=== PATIENT | male | born 1965 | race Caucasian/White ===

== ENCOUNTER → 2019-07-26 11:10 | Outpatient (BNVA) | payer OTHER, SELFPAY | PROVIDERS: Family Provider Internal Medicine; PCP Internal Medicine; Visit Provider Specialist | DX: Z48.89 Encounter for other specified surgical aftercare (principal); Z96.653 Presence of artificial knee joint, bilateral | CPT/HCPCS: 73565 ==

== ENCOUNTER 2019-08-24 06:00 | Outpatient (RCR) | payer OTHER, SELFPAY | END 2019-09-18 23:59 | disposition home or self-care (01) | LOC: TPT 06:00 | PROVIDERS: Family Provider Internal Medicine; PCP Internal Medicine; Referring Provider Specialist; Visit Provider Specialist | DX: Z47.1 Aftercare following joint replacement surgery (principal); Z96.652 Presence of left artificial knee joint | CPT/HCPCS: 97110; 97140; 97161 ==

== ENCOUNTER 2019-09-19 06:00 | Outpatient (RCR) | payer OTHER, SELFPAY | END 2019-10-19 23:59 | disposition home or self-care (01) | LOC: TPT 06:00 | PROVIDERS: Family Provider Internal Medicine; PCP Internal Medicine; Referring Provider Specialist; Visit Provider Specialist | DX: Z47.1 Aftercare following joint replacement surgery (principal); Z96.653 Presence of artificial knee joint, bilateral | CPT/HCPCS: 97110; 97140 ==

== ENCOUNTER → 2019-09-23 10:06 | Outpatient (BNVA) | payer OTHER, SELFPAY | PROVIDERS: Family Provider Internal Medicine; PCP Internal Medicine; Visit Provider Specialist | DX: Z48.89 Encounter for other specified surgical aftercare (principal); Z96.653 Presence of artificial knee joint, bilateral | CPT/HCPCS: 73560; 73565 ==

== ENCOUNTER → 2020-10-27 10:42 | Outpatient (BNVA) | payer OTHER, SELFPAY | PROVIDERS: Family Provider Internal Medicine; PCP Internal Medicine; Visit Provider Nurse Practitioner | DX: K92.1 Melena (principal) | CPT/HCPCS: 85025 ==

== ENCOUNTER → 2021-03-28 10:59 | Outpatient (BNVA) | payer OTHER, SELFPAY | PROVIDERS: Family Provider Internal Medicine; PCP Internal Medicine; Visit Provider Specialist | DX: Z48.89 Encounter for other specified surgical aftercare (principal); M25.569 Pain in unspecified knee; Z96.653 Presence of artificial knee joint, bilateral; M25.561 Pain in right knee; G89.29 Other chronic pain | CPT/HCPCS: 73560; 73565 ==

== ENCOUNTER 2021-10-04 11:28 | Emergency (ER) | payer OTHER, SELFPAY ==
[2021-10-04 11:48] VITALS: BP 131/76; PULSE 59; RESP 16; TEMP 36.9; O2SAT 97; BMI 34.7
--- NOTE | 2021-10-04 12:07 | PC.NURSE ---
Dr. Castro reviewed the EKG that was taken in triage at 1156
--- NOTE | 2021-10-04 14:30 | ECG_ITS ---
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 Measurements Intervals [place] Rate: 53 P: 68 [place]: 156 QRS: 54 QRSD: 88 T: 18 QT: 444 QTc: 417 Interpretive Statements SINUS BRADYCARDIA Compared to ECG 01/27/2019 08:54:54 Sinus rhythm no longer present Electronically Signed On 10-04-2021 21:51:24 CDT by Aaron Travis M.D. [id number]
--- NOTE | 2021-10-04 15:02 | PC.NURSE ---
denies any pain at this time
[2021-10-04 15:03] VITALS: BP 154/84; PULSE 76; RESP 20; O2SAT 98
[2021-10-04 15:22] LABS: Basophils % 0.4 %; Eosinophils # 0.1 10^3/uL (0.0-0.8); Eosinophils % 1.6 %; Hematocrit 47.9 % (42.0-52.0); Hemoglobin 15.8 g/dL (11.7-16.6); Lymphocytes # 2.2 10^3/uL (0.8-4.8); Lymphocytes % 27.6 %; Mean Corpuscular Hemoglobin 31.2 pg (28.0-34.0); Mean Corpuscular Volume 94.7 fl (80-94); Mean Platelet Volume 9.1 fL (7.4-10.4); Monocytes # 0.7 10^3/uL (0.2-0.9); Monocytes % 8.8 %; Neutrophils # 4.94 10^3/uL (1.8-7.7); Neutrophils % 61.2 %; Nucleated Red Blood Cells % 0 %; Platelet Count 234 10^3/cmm (130-400); Red Blood Count 5.06 10^6/uL (4.1-5.3); Red Cell Distribution Width 12.1 % (12.1-15.1); White Blood Count 8.1 10^3/uL (4.0-10.0)
[2021-10-04 15:51] LABS: Anion Gap 14.8 (5-19); Blood Urea Nitrogen 13 mg/dL (6-20); Calcium 9.8 mg/dL (8.5-10.5); Carbon Dioxide 26 mmol/L (22-29); Chloride 102 mmol/L (98-107); Glomerular Filtration Rate 86.7 mL/min (90-130); Glucose 91 mg/dL (65-115); Osmolality Calculated 288 mOsm/kg (285-295); Potassium 3.8 mmol/L (3.5-5.1); Sodium 139 mmol/L (136-145)
[2021-10-04 16:05] VITALS: BP 128/68; PULSE 48; RESP 18; O2SAT 97
--- NOTE | 2021-10-04 16:08 | ED_ITS ---
HPI - General Adult General: Chief complaint: Dizziness Stated complaint: Chestpain, heart pulse low Time Seen by Provider: 10/04/21 14:54 History of Present Illness: Patient is a 56-year-old male with a history of hypertension who presents emergency room for evaluation of low heart rate. Patient was seen earlier today at the [facility] and noted to have a heart rate of 45-46 and was told to go to the emergency room for further evaluation. Patient has had intermittent lightheadedness in the last 3 days. Patient says that he has been taking his metoprolol for his elevated blood pressure. Otherwise patient denies any chest pain, shortness of breath, abdominal complaints of nausea/vomiting, focal neurological deficits, diarrhea, melena/hematochezia. Patient denies any cough, runny nose, sore throat, fever or chills. Onset: 3 days ago of light-headedness Duration:intermittent Location:home Severity:moderate Associated symptoms: Reports palpitations; Deny chest pain, dyspnea, nausea, rash or vomiting Review of Systems Const: Denies: fever(s) or chills Eyes: Denies: change in vision ENMT: Denies: mouth pain Card: Reports: palpitations; Denies: chest pain Resp: Denies: dyspnea or non-productive cough GI: Denies: abdominal pain, nausea, vomiting or diarrhea : Denies: dysuria Musc: Denies: extremity pain Skin/Breast: Denies: rash or new lesions Neuro: Reports: other (+light-headedness); Denies: weakness in extremities Psych: Reports: other (Normal mood) Mrac/Lymph: Denies: easy bruising PFS ED PFSH: Medical History Hypertension Surgical History Hx of total knee arthroplasty right-03/30/2018; Left- 02/02/19 Family History Father Family history of premature coronary artery disease Hypertension Mother Hypertension Denies family history of Diabetes CAD (coronary artery disease) Clotting disorder Dementia Hyperlipidemia Psychiatric illness Chronic kidney disease (CKD) Suicide Anesthesia complication Bleeding disorder Lung disease Cancer Stroke Social History Smoking and tobacco status: former smoker Quit status (tobacco): has quit using tobacco Year quit tobacco: 10 years ago Second hand smoke exposure: No Smoking risk assessment/counseling performed?: No Alcohol intake: never Desire information about alcohol rehabilitation?: No Counseling given: No Physical Exam Const: COMMON NORMALS: alert HENMT: COMMON NORMALS: atraumatic HEAD & SCALP: atraumatic MOUTH: moist mucous membranes not abnormal Eye: COMMON NORMALS: EOMs intact bilaterally and conjunctivae normal CONJUNCTIVA: Yes conjunctivae normal Neck/C-Spine: COMMON NORMALS: full ROM and supple Resp: COMMON NORMALS: normal respiratory effort and clear to auscultation bilaterally AUSCULTATION: clear to auscultation bilaterally Cardio: COMMON NORMALS: regular rate RATE: regular rate GI: COMMON NORMALS: Soft to palpation and non-tender PALPATION: Yes Soft to palpation Extremity: COMMON NORMALS: full ROM Neuro: SENSORIUM/ORIENTATION: Yes alert MOTOR EXAM: No Abnormal motor strength present and Other motor observations present (no focal motor deficits) OTHER: 5 out of 5 strength in all extremities, [id number] intact bilaterally, cranial nerves II to XII grossly intact, patient is able to ambulate with a steady gait, negative Romberg. Psych: COMMON NORMALS: speech normal SPEECH: Yes normal speech MOOD & AFFECT: Yes euthymic mood Course Vital Signs: Vital signs: Vital Signs Temperature 98.4 F 10/04/21 11:48 Pulse Rate 48 L 10/04/21 16:05 Respiratory Rate 18 10/04/21 16:05 Blood Pressure 128/68 10/04/21 16:05 Pulse Oximetry 97 10/04/21 16:05 MDM - General Adult Medical Decision Making 56-year-old male presenting to the emergency room for evaluation of low heart rate and intermittent episode of lightheadedness. Patient denies any associate chest pain, palpitation or shortness of breath. On exam, patient is neurologically intact. Rest of exam within normal limit. Troponin x2 within normal limits. EKG not showing signs of heart blocks, or any other signs of bradycardia. Patient was placed on the monitoring and evaluation advisor continues to have heart rate in the 50s. Troponin x2 within normal limit. At the present time, it is clear what is the source of this bradycardia. Lab Data : 10/04/21 15:10 10/04/21 15:10 Laboratory Results WBC 8.1 10^3/uL (4.0-10.0) 10/04/21 15:10 RBC 5.06 10^6/uL (4.1-5.3) 10/04/21 15:10 Hgb 15.8 g/dL (11.7-16.6) 10/04/21 15:10 Hct 47.9 % (42.0-52.0) 10/04/21 15:10 MCV 94.7 fl (80-94) H 10/04/21 15:10 MCH 31.2 pg (28.0-34.0) 10/04/21 15:10 MCHC 33.0 g/dL (30.0-36.0) 10/04/21 15:10 RDW 12.1 % (12.1-15.1) 10/04/21 15:10 Plt Count 234 10^3/cmm (130-400) 10/04/21 15:10 MPV 9.1 fL (7.4-10.4) 10/04/21 15:10 Neut % (Auto) 61.2 % 10/04/21 15:10 Lymph % (Auto) 27.6 % 10/04/21 15:10 [place] % (Auto) 8.8 % 10/04/21 15:10 Eos % (Auto) 1.6 % 10/04/21 15:10 Baso % (Auto) 0.4 % 10/04/21 15:10 Neut # (Auto) 4.94 10^3/uL (1.8-7.7) 10/04/21 15:10 Lymph # (Auto) 2.2 10^3/uL (0.8-4.8) 10/04/21 15:10 [place] # (Auto) 0.7 10^3/uL (0.2-0.9) 10/04/21 15:10 Eos # (Auto) 0.1 10^3/uL (0.0-0.8) 10/04/21 15:10 Baso # (Auto) 0.0 10^3/uL (0.0-0.1) 10/04/21 15:10 Nucleated RBC % (auto) 0 % 10/04/21 15:10 Nucleated RBCs # 0.0 /100WBC 10/04/21 15:10 Sodium 139 mmol/L (136-145) 10/04/21 15:10 Potassium 3.8 mmol/L (3.5-5.1) 10/04/21 15:10 Chloride 102 mmol/L (98-107) 10/04/21 15:10 Carbon Dioxide 26 mmol/L (22-29) 10/04/21 15:10 Anion Gap 14.8 (5-19) 10/04/21 15:10 BUN 13 mg/dL (6-20) 10/04/21 15:10 Creatinine 0.9 mg/dL (0.7-1.2) 10/04/21 15:10 GFR Calculation 86.7 mL/min (90-130) L 10/04/21 15:10 Glucose 91 mg/dL (65-115) 10/04/21 15:10 Calculated Osmolality 288 mOsm/kg (285-295) 10/04/21 15:10 Calcium 9.8 mg/dL (8.5-10.5) 10/04/21 15:10 Discharge Plan Discharge Condition: Stable Prescriptions: No Action aspirin [Adult Aspirin Regimen] 81 mg tablet,delayed release (DR/EC) 81 mg PO ONCE 0RF rosuvastatin [Crestor] 20 mg tablet 20 mg PO ONCE 0RF lisinopril-hydrochlorothiazide 10-12.5 mg tablet 2 tab PO ONCE 0RF hydrocortisone acetate 25 mg suppository 25 mg [place] DAILY 7 Days Qty: 12 0RF Referrals: Jenny Skelton MD [Primary Care Provider] - Travis Kerns [Family Provider] - Coding Level of Care Code ED Evaluation Manager for Caritog Otilia
[2021-10-04] MEDS: sodium chloride 0.9% 1,000 ML 999 ML IV (17:02)
[2021-10-04 17:06] VITALS: BP 130/73; PULSE 52; RESP 20; O2SAT 99
[2021-10-04 17:39] VITALS: BP 126/69; PULSE 51; RESP 14; O2SAT 99
[2021-10-04 19:05] LABS: Troponin(5th) Baseline 12 ng/L (0-15)
[2021-10-04 19:09] LABS: Troponin 5 2HR 9.38 ng/L (0-15)
[2021-10-04 19:15] LABS: Troponin 5 2HR Delta -3.62 ABS# (0-10)
[2021-10-04 19:38] VITALS: BP 129/82; PULSE 58; RESP 20; O2SAT 98
== END 2021-10-04 19:40 | disposition home or self-care (01) ==
PROVIDERS: Nurse Practitioner Family; Emergency Provider Emergency Medicine; Family Provider Internal Medicine; PCP Family Medicine
DX: R00.1 Bradycardia, unspecified (principal); Z79.82 Long term (current) use of aspirin; I10 Essential (primary) hypertension; Z87.891 Personal history of nicotine dependence
CPT/HCPCS: 80048; 84484; 85025; 93005; 96360; 99284; J7030

== ENCOUNTER → 2021-12-18 12:31 | Outpatient (BNVA) | payer OTHER, SELFPAY | PROVIDERS: Family Provider Internal Medicine; PCP Family Medicine; Visit Provider Internal Medicine | DX: R00.1 Bradycardia, unspecified (principal); I10 Essential (primary) hypertension; R00.0 Tachycardia, unspecified | CPT/HCPCS: 93229; 99204 ==

== ENCOUNTER 2022-01-25 10:20 | Outpatient (CLI) | payer OTHER, SELFPAY ==
--- NOTE | 2022-01-25 11:00 | USCV_ITS ---
Chino Tate Age: 56 Gender: M : 1965 Exam Date: 01/25/2022 10:39 Ordering Phys: Yogesh Jensen M.D ([email or web address]) Technologist: Exam Location: [facility] Indication: sob BP: 138 / 76 HR: 65 Rhythm: Sinus Technical Quality: Adequate MEASUREMENTS (Male / Female) Normal Values 2D ECHO LV Diastolic Diameter PLAX 3.8 cm 4.2 - 5.9 / 3.9 - 5.3 cm LV Systolic Diameter PLAX 2.4 cm IVS Diastolic Thickness 1.2 cm 0.6 - 1.0 / 0.6 - 0.9 cm IVS Systolic Thickness 1.7 cm LVPW Diastolic Thickness 1.1 cm 0.6 - 1.0 / 0.6 - 0.9 cm LVPW Systolic Thickness 1.7 cm LVOT Diameter 2.1 cm LV Ejection Fraction 2D Teich 68.2 % LV Ejection Fraction MOD 2C 80.0 % LV Ejection Fraction 2C AL 81.3 % LA Diameter 4.2 cm Aorta at Sinotubular Diameter 2.6 cm M-MODE Aortic Annulus Diameter 3.6 cm LA Ao Ratio MM 1.2 MV E Point Septal Separation 0.9 cm DOPPLER AV Peak Velocity 193.0 cm/s LVOT Peak Velocity 137.0 cm/s AV Area Cont Eq vti 2.4 cm squared AV Area Cont Eq pk 2.4 cm squared MV Area PHT 5.0 cm squared Mitral E to A Ratio 1.0 MV E' Velocity 44.5 cm/s Mitral E to MV E' Ratio 5.3 Mitral E to LV E' Lateral Ratio 5.5 Mitral E to LV E' Septal Ratio 5.2 TR Peak Velocity 280.5 cm/s TR Peak Gradient 31.5 mmHg TV Peak E Velocity 108.0 cm/s Right Atrial Pressure 3.0 mmHg Pulmonary Artery Systolic Pressu 34.5 mmHg PV Peak Velocity 141.0 cm/s FINDINGS Left Ventricle Normal left ventricular size. LV systolic function is normal with EF of 55-60%. No regional wall motion abnormalities. Diastolic function is normal Right Ventricle The right ventricle is normal in size and function. Right Atrium The right atrium is normal in size. Left Atrium The left atrium is normal in size. Mitral Valve Structurally normal mitral valve without significant stenosis or prolapse. There is no mitral regurgitation. Aortic Valve Structurally normal aortic valve without significant sclerosis or stenosis. There is no aortic regurgitation. Tricuspid Valve Structurally normal tricuspid valve without significant stenosis. Trace tricuspid regurgitation. Pulmonary artery systolic pressure is normal. Pulmonic Valve Not well visualized Pericardium Normal pericardium without effusion. Aorta Mildly dilated ascending aorta IVC CONCLUSIONS Discharge function is normal with EF 55 to 60%. Diastolic function is normal. Trace tricuspid regurgitation. Mildly dilated ascending aorta. No comparison studies are available Yogesh Jensen MD (Electronically Signed) Final Date: 31 January 2022 17:39 S
== END 2022-01-25 10:21 | disposition home or self-care (01) ==
PROVIDERS: PCP Family Medicine; Visit Provider Internal Medicine
DX: R06.02 Shortness of breath (principal)
CPT/HCPCS: 93306

== ENCOUNTER → 2022-02-18 14:52 | Outpatient (BNVA) | payer OTHER, SELFPAY | PROVIDERS: PCP Family Medicine; Visit Provider Internal Medicine | DX: I10 Essential (primary) hypertension (principal); I77.810 Thoracic aortic ectasia; Z87.891 Personal history of nicotine dependence | CPT/HCPCS: 99214 ==

== ENCOUNTER 2022-03-21 11:35 | Outpatient (CLI) | payer OTHER, SELFPAY ==
--- NOTE | 2022-03-21 12:00 | CT_ITS ---
WS: [id number] CTA THORACIC TECHNIQUE: Contrast enhanced CTA of the thoracic aorta with coronal and sagittal reformatted images a nd maximum intensity projection (MIP) images. CLINICAL INFORMATION: thoracic ascending aorta dilation COMPARISON: None. DLP: 1331.[address] scans at [facility] use at least one of these dose optimization techniques: automated e xposure control; mA and/or kV adjustment per patient size (includes targeted exams where dose is matc hed to clinical indication); or iterative reconstruction. FINDINGS: Ascending thoracic aorta measures approximately 3.1 CM. Normal caliber aortic arch and descending tho racic aorta. Normal caliber upper abdominal aorta. Celiac and SMA are patent. Proximal renal arteries are patent. Adrenal glands are normal. Small esophageal hiatal hernia. No mediastinal or hilar lymphadenopathy. No axillary lymphadenopathy. Both lungs are well aerated. No acute pulmonary infiltrates. No focal pneumonia or pleural fluid. Sli ght atelectasis in the RIGHT middle lobe anteriorly. Mild chronic anterior wedging in the mid thoraci c spine. CT/CT angio chest [id number] IMPRESSION: 1. Ascending thoracic aorta measures 3.1 cm. Normal caliber aortic arch and de scending thoracic aorta. 2. Both lungs are well aerated. No acute pulmonary infiltrates. 3. No mediastinal or hilar lymphadenopathy. 4. Small esophageal hiatal hernia.
[2022-03-21] MEDS: iohexol 350 mg/mL 100 mL Btl IV (12:23)
== END 2022-03-21 11:36 | disposition home or self-care (01) ==
PROVIDERS: PCP Family Medicine; Visit Provider Internal Medicine
DX: I71.2 Thoracic aortic aneurysm, without rupture (principal); K44.9 Diaphragmatic hernia without obstruction or gangrene
CPT/HCPCS: 71275

== ENCOUNTER 2022-06-10 08:24 | Outpatient (CLI) | payer OTHER, SELFPAY ==
--- NOTE | 2022-06-10 08:45 | USCV_ITS ---
Chino Tate Age: 57 Gender: M : 1965 Exam Date: 06/10/2022 08:30 Ordering Phys: Yogesh Jensen M.D ([email or web address]) Technologist: [place] [facility] [place]ication: SCREENING AAA HISTORY: Diameter (cm) AP x Transverse x Length Velocity (cm/s) Waveform Prox Aorta: 2.12 x 2.64 x 98.80 Triphasic Mid Aorta: 1.85 x 1.71 x 93.50 Triphasic Distal Aorta: 1.77 x 1.90 x 110.60 Triphasic Right Iliac Prox: 1.21 x 1.21 x 140.70 Triphasic Left Iliac Prox: 1.15 x 1.33 x 138.60 Triphasic Stent Prox Landing x x Aneurysmal Sac Max x x Lt Lat Sac Dim Rt Lat Sac Dim Stent Dist Landing x x Right Iliac Stent x x Left Iliac Stent x x Right Renal Art Left Renal Art FINDINGS: NO AAA IDENTIFIED CONCLUSIONS No evidence of abdominal aortic or bilateral iliac aneurysm. Monroe Haas MD (Electronically Signed) Final Date: 10 June 2022 09:13 S
== END 2022-06-10 08:25 | disposition home or self-care (01) ==
LOC: RAD 08:24
PROVIDERS: PCP Family Medicine; Visit Provider Internal Medicine
DX: Z13.6 Encounter for screening for cardiovascular disorders (principal)
CPT/HCPCS: 93978

== ENCOUNTER → 2022-07-01 12:01 | Outpatient (BNVA) | payer OTHER, SELFPAY | PROVIDERS: PCP Family Medicine; Referring Provider Family Medicine; Visit Provider Specialist | DX: G25.0 Essential tremor (principal); G60.9 Hereditary and idiopathic neuropathy, unspecified; G43.019 Migraine without aura, intractable, without status migrainosus | CPT/HCPCS: 99204 ==

== ENCOUNTER → 2022-11-18 13:16 | Outpatient (BNVA) | payer OTHER, SELFPAY | PROVIDERS: PCP Family Medicine; Visit Provider Internal Medicine | DX: I10 Essential (primary) hypertension (principal); I77.819 Aortic ectasia, unspecified site | CPT/HCPCS: 99214 ==

== ENCOUNTER → 2023-02-19 08:17 | Outpatient (BNVA) | payer OTHER, SELFPAY | PROVIDERS: PCP Family Medicine; Visit Provider Podiatrist Foot & Ankle Surgery | DX: I73.9 Peripheral vascular disease, unspecified; L60.3 Nail dystrophy | CPT/HCPCS: 11721; 93922; 99204 ==

== ENCOUNTER → 2023-03-03 10:42 | Outpatient (BNVA) | payer OTHER, SELFPAY | PROVIDERS: PCP Family Medicine; Visit Provider Specialist | DX: Z96.653 Presence of artificial knee joint, bilateral (principal) | CPT/HCPCS: 73560; 73565; 99213 ==

== ENCOUNTER → 2023-05-27 09:13 | Outpatient (BNVA) | payer OTHER, SELFPAY | PROVIDERS: PCP Family Medicine; Visit Provider Podiatrist Foot & Ankle Surgery | DX: I73.9 Peripheral vascular disease, unspecified (principal); L60.3 Nail dystrophy | CPT/HCPCS: 11721 ==

== ENCOUNTER → 2023-10-08 10:11 | Outpatient (BNVA) | payer OTHER, SELFPAY | PROVIDERS: PCP Family Medicine; Visit Provider Podiatrist Foot & Ankle Surgery | DX: S90.221A Contusion of right lesser toe(s) with damage to nail, initial encounter (principal); I73.9 Peripheral vascular disease, unspecified; L60.8 Other nail disorders; L60.3 Nail dystrophy; X58.XXXA Exposure to other specified factors, initial encounter | CPT/HCPCS: 11721; 11750; A6219 ==

== ENCOUNTER 2023-11-19 23:52 | Emergency (ER) | payer OTHER, SELFPAY ==
[2023-11-20 00:04] VITALS: BP 168/102; PULSE 89; RESP 18; TEMP 37.3; O2SAT 92
[2023-11-20] MEDS: doxycycline 100 mg Tablet PO (00:21)
[2023-11-20] MEDS: acetaminophen 500 mg Tablet 1000 MG PO (00:21)
--- NOTE | 2023-11-20 00:27 | W.ED.FEVER ---
Documented by User: CASANDRA Salazar 11/20/23 00:33 HPI - Fever General: Chief Complaint: Fever Stated Complaint: tick bite 2 weeks ago feeling ill Time Seen by Provider: 11/19/23 23:53 Source: patient Mode of arrival: ambulatory Limitations: no limitations History of Present Illness: Patient is a 58-year-old male who presents to the emergency department complaining of fever and chills onset tonight. He notes he was bit by a tick 2 weeks ago, but he did not remove until a few days after that as it was on his buttock region. He also notes being bitten multiple times since then, but just notes that the one 2 weeks ago went unnoticed. He states he has been fine up until tonight when he developed fever and chills, and states he wanted evaluation before it got any worse as [place]. He notes [facility] and [facility] had labs drawn in between now and the time he was bit, that showed an elevated bilirubin but otherwise unremarkable labs. He states his PCP told him this could be sign of disseminated tick bite, and this also prompted him to seek evaluation. No other symptoms to report at this time. MD elicited complaint: fever Onset (ago): minute(s) Measured temperature: 101 F Context: other (Tick bite) Associated symptoms: Reports chills; Deny abdominal pain, flank pain, chest pain, diarrhea, dysuria, headache(s), nausea or vomiting Treatments prior to arrival fever: none Review of Systems General: Reports: 10 or more systems reviewed and unremarkable except in HPI and below Const: Reports: fever(s) and chills Eyes: Denies: change in vision ENMT: Denies: throat pain, ear or mastoid pain or nasal discharge Card: Denies: chest pain, palpitations, swelling of feet/ankles or lightheadedness Resp: Denies: dyspnea, productive cough or wheezing GI: Denies: abdominal pain, nausea, vomiting, diarrhea or constipation : Denies: flank pain, difficulty urinating, dysuria or urinary frequency Musc: Denies: neck pain, back pain or joint pain Skin/Breast: Reports: other (Tick bite); Denies: rash Neuro: Denies: headache(s), numbness in extremities or weakness in extremities PFS ED PFSH: Medical History Hypertension Surgical History Hx of total knee arthroplasty right-03/30/2018; Left- 02/02/19 Family History Father Family history of premature coronary artery disease Hypertension Mother Hypertension Denies family history of Diabetes CAD (coronary artery disease) Clotting disorder Dementia Hyperlipidemia Psychiatric illness Chronic kidney disease (CKD) Suicide Anesthesia complication Bleeding disorder Lung disease Cancer Stroke Social History Smoking and tobacco/nicotine status: never used tobacco/nicotine Quit status (tobacco/nicotine): has quit using Year quit tobacco: 10 years ago Second hand smoke exposure: No Alcohol intake: never Substance/Drug Use: never Physical Exam Const: COMMON NORMALS: no acute distress, patient oriented x3 and no limitations GENERAL APPEARANCE: cooperative, comfortable and well developed ORIENTATION/CONSCIOUSNESS: Yes awake, Yes oriented to person, Yes oriented to place and Yes oriented to time HENMT: COMMON NORMALS: normocephalic, atraumatic and hearing grossly normal bilaterally HEAD & SCALP: normocephalic and atraumatic Eye: COMMON NORMALS: Equal, round and reactive pupils present, EOMs intact bilaterally and conjunctivae normal CONJUNCTIVA: Yes conjunctivae normal PUPIL: Yes Equal, round and reactive pupils present Neck/C-Spine: COMMON NORMALS: full ROM, supple and no JVD Resp: COMMON NORMALS: normal respiratory effort, No retractions, No use of accessory muscles and clear to auscultation bilaterally AUSCULTATION: clear to auscultation bilaterally Cardio: COMMON NORMALS: no JVD, regular rate, regular rhythm, No clicks present (Cardio), No murmurs present (Cardio) and No rub (Cardio) RATE: regular rate RHYTHM: regular rhythm GI: COMMON NORMALS: Normal to inspection, nondistended, normoactive bowel sounds present, Soft to palpation and non-tender AUSCULTATION: Yes normoactive bowel sounds PALPATION: Yes Soft to palpation RECTAL EXAM: Yes deferred Back/Pelvis: COMMON NORMALS: thoracic and lumbar spine normal to inspection, no thoracic nor lumbar tenderness and thoraco-lumbar ROM normal Extremity: COMMON NORMALS: normal to inspection, full ROM and capillary refill normal Neuro: COMMON NORMALS: patient oriented x3, moves all extremities, no focal motor deficits and no sensory deficits noted SENSORIUM/ORIENTATION: Yes oriented to person, Yes oriented to place and Yes oriented to time Psych: COMMON NORMALS: mental status grossly normal and Normal thought process present THOUGHT PROCESS: Normal thought process present Skin: COMMON NORMALS: no rashes or lesions noted GENERAL SKIN EXAM: no rashes or lesions noted Course Vital Signs: Vital signs: Vital Signs Temperature 99.2 F 11/20/23 00:04 Pulse Rate 89 11/20/23 00:04 Respiratory Rate 18 11/20/23 00:04 Blood Pressure 168/102 11/20/23 00:04 Pulse Oximetry 92 11/20/23 00:04 Oxygen Delivery Me thod Room Air 11/20/23 00:04 MDM - Fever Medical Decision Making Patient presents with fever and chills today. Bitten by multiple ticks, most notably 1 2 weeks ago that went unnoticed due to it being on his buttock region. States he is commonly bitten by ticks and has been treated with Doxy in the past. He states he wanted evaluation before it got any worse. On arrival he was afebrile though temp was mildly elevated. Examination unremarkable. Will give patient dose of doxycycline here in the emergency department as well as acetaminophen, and send prescription to his pharmacy. Will be treated clinically and due to his history of tick bites, and reasons to return discussed. [facility] No radiology studies performed this visit Discharge Plan Discharge Patient Disposition: Home Clinical Impression: Tick bite Qualifiers: Encounter type: initial encounter Site of tick bite: lower back Qualified Code(s): S30.860A - Insect bite (nonvenomous) of lower back and pelvis, initial encounter Condition: Stable Prescriptions: New doxycycline hyclate 100 mg tablet 100 mg PO BID 10 Days Qty: 20 0RF No Action rosuvastatin [Crestor] 20 mg tablet 20 mg PO ONCE cholecalciferol (vitamin D3) 125 mcg (5,000 unit) capsule 125 mcg PO DAILY mupirocin 2 % ointment 1 applic topical BID Qty: 15 0RF lisinopril-hydrochlorothiazide 10-12.5 mg tablet 1 tab PO DAILY Qty: 90 3RF amlodipine 5 mg tablet 5 mg PO DAILY Qty: 90 3RF (DME) custom inserts See Rx Instructions .Route .MEDSUPPLY Qty: 1 0RF Rx Instructions: As directed, made by the zeinab uriostegui Discharge Orders: Discharge ED (Routine); Ordered 11/20/23 Ordered By: Joce Jj Referrals: Jenny Skelton MD [Primary Care Provider] - Discharge Diet: Usual diet Discharge Activity: Increase activity as tolerated Patient Instructions: Tick Bite (ED) Activity Restrictions/Additional Instructions: Doxycycline as prescribed. Control fevers with Tylenol. Plenty of fluids. Return with any new or concerning symptoms. Otherwise, [facility]. Coding Level of Care Code ED Handicrafts Teacher for Chg Fwd Documented by User: Gerson Nunes DO 11/20/23 07:56 HPI - Fever General: Chief Complaint: Fever Stated Complaint: tick bite 2 weeks ago feeling ill Time Seen by Provider: 11/19/23 23:53 PFSH ED PFSH: Medical History Hypertension Surgical History Hx of total knee arthroplasty right-03/30/2018; Left- 02/02/19 Family History Father Family history of premature coronary artery disease Hypertension Mother Hypertension Denies family history of Diabetes CAD (coronary artery disease) Clotting disorder Dementia Hyperlipidemia Psychiatric illness Chronic kidney disease (CKD) Suicide Anesthesia complication Bleeding disorder Lung disease Cancer Stroke Social History Smoking and tobacco/nicotine status: never used tobacco/nicotine Quit status (tobacco/nicotine): has quit using Year quit tobacco: 10 years ago Second hand smoke exposure: No Alcohol intake: never Substance/Drug Use: never Course Vital Signs: Vital signs: Vital Signs Temperature 99.2 F 11/20/23 00:04 Pulse Rate 89 11/20/23 00:04 Respiratory Rate 18 11/20/23 00:04 Blood Pressure 168/102 11/20/23 00:04 Pulse Oximetry 92 11/20/23 00:04 Oxygen Delivery Me thod Room Air 11/20/23 00:04 MDM - Fever Medical Decision Making Patient presents with fever and chills today. Bitten by multiple ticks, most notably 1 2 weeks ago that went unnoticed due to it being on his buttock region. States he is commonly bitten by ticks and has been treated with Doxy in the past. He states he wanted evaluation before it got any worse. On arrival he was afebrile though temp was mildly elevated. Examination unremarkable. Will give patient dose of doxycycline here in the emergency department as well as acetaminophen, and send prescription to his pharmacy. Will be treated clinically and due to his history of tick bites, and reasons to return discussed. [facility]. Chart reviewed Discharge Plan Discharge Patient Disposition: Home Clinical Impression: Tick bite Qualifiers: Encounter type: initial encounter Site of tick bite: lower back Qualified Code(s): S30.860A - Insect bite (nonvenomous) of lower back and pelvis, initial encounter Condition: Stable Prescriptions: New doxycycline hyclate 100 mg tablet 100 mg PO BID 10 Days Qty: 20 0RF No Action rosuvastatin [Crestor] 20 mg tablet 20 mg PO ONCE cholecalciferol (vitamin D3) 125 mcg (5,000 unit) capsule 125 mcg PO DAILY mupirocin 2 % ointment 1 applic topical BID Qty: 15 0RF lisinopril-hydrochlorothiazide 10-12.5 mg tablet 1 tab PO DAILY Qty: 90 3RF amlodipine 5 mg tablet 5 mg PO DAILY Qty: 90 3RF (DME) custom inserts See Rx Instructions .Route .MEDSUPPLY Qty: 1 0RF Rx Instructions: As directed, made by the zeinab uriostegui Discharge Orders: Discharge ED (Routine); Ordered 11/20/23 Ordered By: Joce Jj Referrals: Jenny Skelton MD [Primary Care Provider] - Discharge Diet: Usual diet Discharge Activity: Increase activity as tolerated Patient Instructions: Tick Bite (ED) Activity Restrictions/Additional Instructions: Doxycycline as prescribed. Control fevers with Tylenol. Plenty of fluids. Return with any new or concerning symptoms. Otherwise, [facility]. Coding Level of Care Code ED Handicrafts Teacher for Jaylen Bingham
== END 2023-11-20 00:33 | disposition home or self-care (01) ==
PROVIDERS: Emergency Provider Physician Assistant; PCP Family Medicine
DX: S30.860A Insect bite (nonvenomous) of lower back and pelvis, initial encounter (principal); W57.XXXA Bitten or stung by nonvenomous insect and other nonvenomous arthropods, initial encounter; I10 Essential (primary) hypertension; Z87.891 Personal history of nicotine dependence
CPT/HCPCS: 99283

== ENCOUNTER → 2023-11-20 10:48 | Outpatient (BNVA) | payer OTHER, SELFPAY | PROVIDERS: PCP Family Medicine; Referring Provider Family Medicine; Visit Provider Dermatology | DX: L82.0 Inflamed seborrheic keratosis (principal); D22.5 Melanocytic nevi of trunk; L72.0 Epidermal cyst; S20.461A Insect bite (nonvenomous) of right back wall of thorax, initial encounter; S30.860A Insect bite (nonvenomous) of lower back and pelvis, initial encounter; X58.XXXA Exposure to other specified factors, initial encounter; L57.0 Actinic keratosis; L81.4 Other melanin hyperpigmentation; Z85.828 Personal history of other malignant neoplasm of skin | CPT/HCPCS: 10120; 17110; 99203 ==

== ENCOUNTER → 2024-01-13 09:09 | Outpatient (BNVA) | payer OTHER, SELFPAY | PROVIDERS: PCP Family Medicine; Visit Provider Podiatrist Foot & Ankle Surgery | DX: L60.8 Other nail disorders (principal); I73.9 Peripheral vascular disease, unspecified; L60.3 Nail dystrophy | CPT/HCPCS: 11721 ==

== ENCOUNTER → 2024-02-25 11:40 | Outpatient (BNVA) | payer OTHER, SELFPAY | PROVIDERS: PCP Family Medicine; Visit Provider Internal Medicine | DX: I10 Essential (primary) hypertension (principal); I77.810 Thoracic aortic ectasia; Z87.891 Personal history of nicotine dependence | CPT/HCPCS: 99214 ==

== ENCOUNTER → 2024-05-04 09:54 | Outpatient (BNVA) | payer OTHER, SELFPAY | PROVIDERS: PCP Family Medicine; Visit Provider Podiatrist Foot & Ankle Surgery | DX: I73.9 Peripheral vascular disease, unspecified (principal); L60.8 Other nail disorders; L60.3 Nail dystrophy | CPT/HCPCS: 11721 ==

== ENCOUNTER → 2024-08-10 09:19 | Outpatient (BNVA) | payer OTHER, SELFPAY | PROVIDERS: PCP Family Medicine; Visit Provider Podiatrist Foot & Ankle Surgery | DX: L60.8 Other nail disorders (principal); I73.9 Peripheral vascular disease, unspecified; L60.3 Nail dystrophy | CPT/HCPCS: 11721 ==

== ENCOUNTER → 2024-08-26 14:16 | Outpatient (BNVA) | payer OTHER, SELFPAY | PROVIDERS: PCP Family Medicine; Visit Provider Dermatology | DX: D22.5 Melanocytic nevi of trunk (principal); L72.0 Epidermal cyst; L82.1 Other seborrheic keratosis; Z08 Encounter for follow-up examination after completed treatment for malignant neoplasm; Z85.828 Personal history of other malignant neoplasm of skin; A63.0 Anogenital (venereal) warts; R20.8 Other disturbances of skin sensation; L29.89 Other pruritus; L53.8 Other specified erythematous conditions | CPT/HCPCS: 17110; 99213 ==

== ENCOUNTER → 2024-09-16 14:23 | Outpatient (BNVA) | payer OTHER, SELFPAY | PROVIDERS: PCP Family Medicine; Visit Provider Dermatology | DX: A63.0 Anogenital (venereal) warts (principal); L29.89 Other pruritus; L53.8 Other specified erythematous conditions; R20.8 Other disturbances of skin sensation | CPT/HCPCS: 17110 ==